=== PATIENT | male | born 1970 | race Caucasian/White ===

== ENCOUNTER 2017-05-12 18:56 | Emergency (ER) | payer OTHER ==
[~2017-05-12] VITALS: Ht 152.4 cm; Wt 77.1 kg
[~2017-05-12 18:56] MED LIST: BACTRIM DS TAB1 EACH PO; LISINOPRIL10 MG PO; PULMICORT0.25 MG/2 INH
[2017-05-12] MEDS ORDERED: AMLODIPINE BES2.5 MG PO (20:38)
== END 2017-05-12 23:55 | disposition home or self-care (01) ==
LOC: ED 18:56
DX: J20.9 Acute bronchitis, unspecified (principal); I10 Essential (primary) hypertension; Z79.899 Other long term (current) drug therapy
CPT/HCPCS: 87502; 99283